=== PATIENT | female | born 1950 | race Caucasian/White ===

== ENCOUNTER 2021-05-01 19:03 | Inpatient (IN) | payer MEDICARE, MEDICAID, SELFPAY ==
[~2021-05-01] VITALS: Ht 170.2 cm; Wt 86.2 kg
--- NOTE | 2021-05-01 19:05 | NUR ---
Placed in room 07 . Placed on cardiac monitor technician, blood pressure machine and pulse oximeter. To gown for exam. Side rails up. Report given to GUANAKITO ZAVALA
[2021-05-01 19:09] VITALS: BP_SYST 156
--- NOTE | 2021-05-01 19:15 | NUR ---
AWAKE, BOUTS OF CONFUSION. THIRSTY, ASKED FOR ICED WATER. PT IS BLIND BILAYERALLY. ACCU-MAURICEK MD YANCI AWARE.
--- NOTE | 2021-05-01 19:23 | NUR ---
DEDE ARRIOLA ([facility]) [phone]
--- NOTE | 2021-05-01 20:00 | NUR ---
TOOK SIPS OF ICED WATER.
[2021-05-01 20:05] LABS: BASOPHILS % (AUTO) 0.2 % (0.0-2.0); EOSINOPHILS % (AUTO) 0.2 % (0.0-4.0); HEMATOCRIT 34.3 % (36-48); HEMOGLOBIN 10.3 g/dL (12.0-16.0); LYMPHOCYTES # (AUTO) 0.6 K/uL (1.0-5.5); LYMPHOCYTES % (AUTO) 3.6 % (20.5-51.5); MEAN CORPUSCULAR HEMOGLOBIN 27 pg (27-31); MEAN CORPUSCULAR HGB CONC 30 % (32-36); MEAN CORPUSCULAR VOLUME 89 fL (79.0-98.0); MONOCYTES # (AUTO) 1.2 K/uL (0.0-1.0); MONOCYTES % (AUTO) 6.5 % (1.7-9.3); NEUTROPHILS # (AUTO) 15.9 K/uL (1.8-7.7); NEUTROPHILS % (AUTO) 89.5 % (40.0-70.0); PLATELET COUNT (AUTO) 237 K/uL (130-430); RED BLOOD CELL COUNT(AUTO) 3.87 MIL/uL (4.2-6.2); RED CELL DISTRIBUTION WIDTH 13.4 % (9.0-15.0); WHITE BLOOD COUNT (AUTO) 17.8 K/uL (4.8-10.8)
[2021-05-01 20:25] LABS: ANION GAP 31 (5-15); CALCIUM 8.8 mg/dL (8.4-11.0); CREATININE 3.02 mg/dL (0.55-1.30); SODIUM SERUM 126 mmol/L (136-145); UREA NITROGEN, BLOOD 51 mg/dL (8-21)
[2021-05-01 20:30] LABS: CHLORIDE 84 mmol/L (98-107); GLUCOSE 842 mg/dL (70-99)
[2021-05-01 20:35] LABS: ALANINE AMINOTRANSFERASE 11 U/L (12-78); ALBUMIN 2.8 g/dL (3.4-4.8); ASPARTATE AMINOTRANSFERASE 14 U/L (10-37); TOTAL BILIRUBIN 0.7 mg/dL (0.0-1.0)
[2021-05-01 20:36] LABS: ACETAMINOPHEN < 1 ug/mL (1-30); ALCOHOL, BLOOD < 3 mg/dL (<10)
[2021-05-01 20:39] LABS: ACETONE, SERUM LARGE (NEGATIVE)
[2021-05-01 20:46] LABS: INR 0.9 (0.8-1.2); PROTHROMBIN TIME 9.9 SECS (9.5-12.5)
[2021-05-01 21:08] LABS: C-REACTIVE PROTEIN QUANT 29.3 mg/dL (0-0.5)
[2021-05-01] MEDS ORDERED: INSULIN REGULAR, HUMAN 10 UNITS/0.1 ML INJ IVP ONE (21:15)
[2021-05-01] MEDS ORDERED: PIPERACILLIN/TAZO 3.375 GM in NS 50 ML IV ONE (21:15)
[2021-05-01] MEDS ORDERED: NACL 0.9% 1,000 ML IV ONE (21:15)
[2021-05-01] MEDS ORDERED: INSULIN REGULAR, HUMAN 100 UNITS in NS 99 ML IV ONE ×2 (21:15)
[2021-05-01] MEDS ORDERED: VANCOMYCIN HCL 1,000 MG in NS 250 ML IV ONE (21:15)
[2021-05-01] MEDS ORDERED: INSULIN REGULAR, HUMAN 100 UNITS in NS 99 ML IV PRN ×2 (21:30)
[2021-05-01] MEDS ORDERED: NACL 0.9% 1,000 ML IV SCH (21:30)
[2021-05-01] MEDS ORDERED: DEXTROSE 50% JECT 50 ML DISP.SYRIN IVP PRN (21:30)
[2021-05-01 21:43] LABS: PHOSPHORUS 7.1 mg/dL (2.7-4.5)
--- NOTE | 2021-05-01 22:00 | NUR ---
ASTRID PETE MD AWARE.
--- NOTE | 2021-05-01 22:40 | NUR ---
[place] CATH INSERTED USING ASEPTIC TECHNIQUE. URINE SPEC SENT TO LAB FOR UA.
--- NOTE | 2021-05-01 22:53 | NUR ---
INSULIN DRIP STARTED AT 6 UNITS/HR.
[2021-05-01] MEDS ORDERED: PIPERACILLIN/TAZOBACTAM 3.375 GM/VIAL (ZOSYN) IV ONE (22:56)
[2021-05-01] MEDS ORDERED: VANCOMYCIN HCL 1000 MG/VIAL IV ONE (22:56)
[2021-05-01 23:16] LABS: BILIRUBIN,URINE 1+ (NEGATIVE); BLOOD, URINE 1+ (NEGATIVE); COLOR,URINE YELLOW (YELLOW); GLUCOSE,URINE 3+ (NEGATIVE); KETONES,URINE 3+ (NEGATIVE); LEUKOCYTE ESTERASE ,URINE NEGATIVE (NEGATIVE); NITRITE, URINE NEGATIVE (NEGATIVE); PH,URINE 5.5 (5.0-8.0); PROTEIN URINE 1+ (NEGATIVE); UROBILINOGEN,URINE 0.2 (0.2-1.0)
[2021-05-01 23:18] LABS: CLARITY/URINE HAZY (CLEAR)
[2021-05-01 23:24] LABS: BACTERIA,URINE FEW /HPF (None Seen); RBC,URINE 0-3 /HPF (0-3)
[2021-05-01 23:29] LABS: BARBITURATE, URINE NEGATIVE (NEG <=200); BENZODIAZEPINE, URINE NEGATIVE (NEG <=150); CANNABINOID, URINE NEGATIVE (NEG <=50); COCAINE, URINE NEGATIVE (NEG <=150); METHAMPHETAMINES SCREEN,URINE NEGATIVE (NEG <=500); OPIATE, URINE NEGATIVE (NEG <=100); PHENCYCLIDINE SCREEN,URINE NEGATIVE (NEG <=25); URINE AMPHETAMINE NEGATIVE (NEG <=500); URINE METHADONE NEGATIVE (NEG <=200); URINE OXYCODONE SCREEN NEGATIVE (NEG <=100); URINE PROPOXYPHENE SCREEN NEGATIVE (NEG <=300)
[2021-05-01 23:30] LABS: UR TRICYCLIC ANTIDEPRESSANTS NEGATIVE (NEG <=300)
[2021-05-01] MEDS ORDERED: ACETAMINOPHEN/CODEINE 300 MG-30 MG TABLET PO ONE (23:30)
[2021-05-01] MEDS ORDERED: NALOXONE HCL 0.4 MG/ML AMP (NARCAN) IVP PRN (23:30)
--- NOTE | 2021-05-01 23:45 | NUR ---
TYLENOL #3 1 TAB PO GIVEN FOR BACK PAIN.
--- NOTE | 2021-05-01 23:57 | NUR ---
ACCLeonard-ELLIE Contreras MD AWARE.
[2021-05-02] VITALS (13 sets, daily range): BP systolic 103–138
[2021-05-02] MEDS: LORazepam 2 MG/ML VIAL IVP PRN ×2 (00:13→00:16)
--- NOTE | 2021-05-02 00:15 | NUR ---
ATIVAN 1 MG IVP GIVEN FOR ANXIETY.
--- NOTE | 2021-05-02 00:20 | NUR ---
NASAL SWAB SENT TO LAB FOR MRSA AN COVID.
--- NOTE | 2021-05-02 00:31 | NUR ---
PATIENT AOX1 UNABLE TO REMEMBER MEDICATIONS. NO FAMILY AT BEDSIDE. UNABLE TO COMPLETE MEDICATION RECONCILIATION AT THIS TIME.
--- NOTE | 2021-05-02 00:32 | NUR ---
Patient is unable to participate in end of life decisions making at this time. We are unable to contact family or power of immigration attorney for healthcare and there are no code status forms on the chart. At this time the patient will be treated as full code on the basis of implied consent.
--- NOTE | 2021-05-02 01:00 | NUR ---
ACCU-CHEK 525, INSULIN DRIP REMAINS AT 6 UNITS/HR.
--- NOTE | 2021-05-02 02:00 | NUR ---
ACCU-CHEK 456, INSULIN DRIP AT 5 UNITS/HR.
--- NOTE | 2021-05-02 02:22 | NUR ---
1000 CC URINE EMPTIED OUT OF [place] CATH.
[2021-05-02] MEDS ORDERED: HYDROmorphone 1 MG/ML INJ. CARTRIDGE IVP ONE (03:15)
--- NOTE | 2021-05-02 03:25 | NUR ---
ACCU-CHEK 340, INSULIN DRIP AT 3 UNITS/HR. DILAUDID 0.5 MG IVP GIVEN FOR BACK PAIN.
--- NOTE | 2021-05-02 03:30 | NUR ---
VS 130/59, 86, 96%, 20.
[2021-05-02] MEDS ORDERED: PIPERACILLIN/TAZOBACTAM 3.375 GM/VIAL (ZOSYN) IV ONE (03:47)
--- NOTE | 2021-05-02 04:00 | NUR ---
ACCU-CHEK 317, INSULIN DRIP AT 3UNITS/HR. SOUNDLY ASLEEP.
--- NOTE | 2021-05-02 05:00 | NUR ---
ACCU-CHEK 332, INSULIN DRIP AT 3 UNITS/HR. SOUNDLY ASLEEP. NO DISTRESS NOTED. BP 124/49.
[2021-05-02] MEDS: PIPERACILLIN/TAZO 3.375/DEX-IS 50 ML IV SCH ×3 (05:55→21:19)
[2021-05-02 06:08] LABS: BASOPHILS # (AUTO) 0.1 K/uL (0.0-0.2); BASOPHILS % (AUTO) 0.3 % (0.0-2.0); HEMATOCRIT 32.6 % (36-48); HEMOGLOBIN 10.6 g/dL (12.0-16.0); LYMPHOCYTES # (AUTO) 1.6 K/uL (1.0-5.5); LYMPHOCYTES % (AUTO) 9.2 % (20.5-51.5); MEAN CORPUSCULAR HEMOGLOBIN 27 pg (27-31); MEAN CORPUSCULAR HGB CONC 33 % (32-36); MEAN CORPUSCULAR VOLUME 83 fL (79.0-98.0); MONOCYTES # (AUTO) 1.9 K/uL (0.0-1.0); MONOCYTES % (AUTO) 10.8 % (1.7-9.3); NEUTROPHILS % (AUTO) 79.7 % (40.0-70.0); PLATELET COUNT (AUTO) 238 K/uL (130-430); RED BLOOD CELL COUNT(AUTO) 3.95 MIL/uL (4.2-6.2); WHITE BLOOD COUNT (AUTO) 17.6 K/uL (4.8-10.8)
--- NOTE | 2021-05-02 06:11 | NUR ---
ACCU-CHEK 321, INSULIN DRIP AT 3 UNITS/HR. SOUNDLY ASLEEP. SNORES. MOUTH BREATHER. DESATURATES TO LOW 80'S. PLACED ON O2 AT 2L/NC. POX IMPROVED TO 96-97%. UO GOOD, 600CC MORE URINE OUT OF [place] CATH FOR A TOTAL OF 1600CC FOR NOC SHIFT. ABLE TO REPOSITION SELF WELL. REMAINS IN GUARDED CONDITION.
--- NOTE | 2021-05-02 06:58 | NUR ---
ACCU-CHEK 316, INSULIN DRIP AT 3 UNITS/HR.
[2021-05-02 07:03] LABS: ALANINE AMINOTRANSFERASE 3 U/L (12-78); ALBUMIN 2.7 g/dL (3.4-4.8); ANION GAP 17 (5-15); ASPARTATE AMINOTRANSFERASE 14 U/L (10-37); CALCIUM 8.4 mg/dL (8.4-11.0); CHLORIDE 97 mmol/L (98-107); CREATININE 2.74 mg/dL (0.55-1.30); GLUCOSE 346 mg/dL (70-99); PHOSPHORUS 3.9 mg/dL (2.7-4.5); SODIUM SERUM 136 mmol/L (136-145); TOTAL BILIRUBIN 0.5 mg/dL (0.0-1.0); UREA NITROGEN, BLOOD 50 mg/dL (8-21)
--- NOTE | 2021-05-02 07:08 | NUR ---
RESUMING CARE FROM GUANAKITO ZAVALA. PT TO TRANSFER TO ICU WHEN BED AVAILABLE.
[2021-05-02 07:43] LABS: C-REACTIVE PROTEIN QUANT 28.2 mg/dL (0-0.5)
[2021-05-02 07:54] LABS: ERYTHROCYTE SEDIMENTATION RATE 106 MM/HR (0-20)
--- NOTE | 2021-05-02 08:08 | NUR ---
ACCUCHECK 294, ATTENDING RN MADE AWARE
[2021-05-02] MEDS ORDERED: KCL 20 mEq in 100 mL (PREMIX) 100 ML IV ONE (08:45)
[2021-05-02 09:33] LABS: CHOLESTEROL 159 mg/dL (<200); HDL CHOLESTEROL 55 mg/dL (>55); LDL CHOLESTEROL 58 mg/dL (<100); TRIGLYCERIDES 187 mg/dL (30-150)
[2021-05-02] MEDS ORDERED: ASPI-1393 PO (09:42)
[2021-05-02] MEDS ORDERED: LIP40 PO (09:42)
[2021-05-02] MEDS ORDERED: ERGO50CA PO (09:42)
[2021-05-02] MEDS ORDERED: SSNOVOLOG SUBCUT (09:42)
[2021-05-02] MEDS ORDERED: HYDR25TA4 PO (09:42)
[2021-05-02] MEDS ORDERED: HYDR-4038 PO (09:42)
[2021-05-02] MEDS ORDERED: LOPE2CAP PO (09:42)
[2021-05-02] MEDS: NACL 0.9% 1,000 ML IV SCH ×2 (09:45→19:53)
--- NOTE | 2021-05-02 10:28 | NUR ---
REPORT GIVEN TO GUANAKITO SANZ FOR CONITNUITY OF CARE IN ICU. PT IS STABLE, NAD, VSS, AWAITING TRANSPORT WITH EMT TO THE UNIT.
--- NOTE | 2021-05-02 10:45 | NUR ---
PT TRANSFERRED BY ACLS, WITH MIN, EMT. ADDITIONAL, BEDSIDE REPORT GIVEN.
--- NOTE | 2021-05-02 10:53 | NUR ---
CONSULT ID CONSULTING MD: DR. CANADA PERSON NOTIFIED: DR. CANADA ORDERED BY: DR. MACIEL DIALED: [phone]
--- NOTE | 2021-05-02 11:00 | NUR ---
Received pt from ER to ICU bed 126B. Pt has eyes open but is non verbal at this time. Temp 97.7 HR 78 RR 15 and BP 117/59 on arrival. 02 at 2L NC. HOB up. Pt has NS infusing at 100cc/hr and KCL 20 meq infusing at 20cc/hr to the right hand. No skin breakdown noted to back side. SR on monitor. Pt has a willard with yellow urine in bag.
--- NOTE | 2021-05-02 11:16 | NUR ---
accu checek 399.
--- NOTE | 2021-05-02 11:20 | NUR ---
CONSULT NEPHRO. CONSULTING MD: DR. FLORES PERSON NOTIFIED: LISBET DIALED: [phone] ORDERED BY: DR. MACIEL
--- NOTE | 2021-05-02 11:26 | NUR ---
CONSULT ENDOCRINE CONSULTING MD: DR. RAO SAYED DIALED: [phone] ORDERED BY: DR. MACIEL LEFT A VOICE MESSAGE AWAITING CALL BACK.
--- NOTE | 2021-05-02 11:42 | NUR ---
Unable to scan accucheck. Pharmacist notified Henry. Torres 399.
--- NOTE | 2021-05-02 11:49 | NUR ---
Dr Dimas Sayed paged a second time for consult.
[2021-05-02] MEDS ORDERED: INSULIN LISPRO SLIDING SCALE 100 UNITS/ML VIAL (humaLOG) SUBCUT PRN (12:30)
--- NOTE | 2021-05-02 13:40 | NUR ---
Accucheck 475 and 12 units of humalog insulin subcut given. Call out to Dr. Noonan.
[2021-05-02] MEDS ORDERED: D5W 1,000 ML IV PRN (13:45)
[2021-05-02] MEDS ORDERED: DEXTROSE 50%-WATER 50 ML DISP.SYRIN IVP PRN (13:45)
[2021-05-02] MEDS ORDERED: GLUCOSE (DEXTROSE) ORAL GEL -Adults PO PRN (13:45)
--- NOTE | 2021-05-02 13:45 | NUR ---
Humalog insulin not scanning. Spoke with ozzy. Humalog sliding scale insulin given as ordered.
[2021-05-02 13:51] LABS: ANION GAP 21 (5-15); CALCIUM 8.5 mg/dL (8.4-11.0); CHLORIDE 96 mmol/L (98-107); CREATININE 2.94 mg/dL (0.55-1.30); POTASSIUM 4.7 mmol/L (3.5-5.1); SODIUM SERUM 133 mmol/L (136-145); UREA NITROGEN, BLOOD 54 mg/dL (8-21)
[2021-05-02 13:57] LABS: GLUCOSE 513 mg/dL (70-99)
[2021-05-02] MEDS ORDERED: INSULIN REGULAR, HUMAN 100 UNITS in NS 99 ML IV PRN ×2 (14:15)
[2021-05-02] MEDS ORDERED: DEXTROSE 50% JECT 50 ML DISP.SYRIN IVP PRN (15:15)
[2021-05-02] MEDS: INSULIN REGULAR, HUMAN 100 UNITS in NS 99 ML IV PRN ×10 (16:29→23:05)
[2021-05-02 18:13] LABS: ANION GAP 16 (5-15); CALCIUM 8.6 mg/dL (8.4-11.0); CHLORIDE 98 mmol/L (98-107); CREATININE 3.03 mg/dL (0.55-1.30); POTASSIUM 3.6 mmol/L (3.5-5.1); SODIUM SERUM 133 mmol/L (136-145); UREA NITROGEN, BLOOD 54 mg/dL (8-21)
[2021-05-02 18:28] LABS: GLUCOSE 436 mg/dL (70-99)
--- NOTE | 2021-05-02 19:30 | NUR ---
Report given to oncoming staff. Insulin drip at 6 units/hr. zNS at 100 cc/hr infusing. Pt more alert and took a few ice chips. Repostioned in bed with pillows.
--- NOTE | 2021-05-02 20:11 | NUR ---
PAGED FOR ORDERS DIALED: [phone] SPOKE TO: LAUREN
[2021-05-02] MEDS ORDERED: LEVOFLOXACIN IN DEXTROSE 5 % 100 ML IV SCH (21:00)
--- NOTE | 2021-05-02 21:53 | NUR ---
HIGH ALERT NOTE: Called Dr. BLAKE back at identified within the medical roster to verify physician authenticity.
[2021-05-02] MEDS ORDERED: MORPHINE 2 MG/ML INJ. SYRINGE IVP ONE (22:00)
[2021-05-02] MEDS ORDERED: LEVOFLOXACIN IN DEXTROSE 5 % 100 ML IV ONE (22:14)
[2021-05-02] MEDS ORDERED: HYDROcodone/ACETAMIN 5-325 MG TAB (NORCO/ VICODIN) PO PRN (22:15)
[2021-05-02] MEDS ORDERED: NALOXONE HCL 0.4 MG/ML AMP (NARCAN) IVP PRN (22:15)
[2021-05-03] VITALS (23 sets, daily range): BP systolic 101–149
[2021-05-03 00:15] LABS: ANION GAP 11 (5-15); CALCIUM 8.7 mg/dL (8.4-11.0); CHLORIDE 103 mmol/L (98-107); CREATININE 2.81 mg/dL (0.55-1.30); GLUCOSE 227 mg/dL (70-99); POTASSIUM 3.6 mmol/L (3.5-5.1); SODIUM SERUM 139 mmol/L (136-145); UREA NITROGEN, BLOOD 52 mg/dL (8-21)
[2021-05-03] MEDS: INSULIN REGULAR, HUMAN 100 UNITS in NS 99 ML IV PRN ×14 (00:18→06:44)
--- NOTE | 2021-05-03 05:05 | NUR ---
Nutrition Update John Scale 15 noted. Pt admitted for Hyperglycemia Diet: NPO BMI: 29.8 kg/m2 RD to follow per nutrition care standards.
[2021-05-03] MEDS: NACL 0.9% 1,000 ML IV SCH ×2 (05:40→14:02)
[2021-05-03] MEDS: PIPERACILLIN/TAZO 3.375/DEX-IS 50 ML IV SCH ×3 (05:40→21:15)
[2021-05-03 07:56] LABS: BASOPHILS % (AUTO) 0.3 % (0.0-2.0); EOSINOPHILS % (AUTO) 0.1 % (0.0-4.0); HEMATOCRIT 30.7 % (36-48); LYMPHOCYTES # (AUTO) 0.4 K/uL (1.0-5.5); LYMPHOCYTES % (AUTO) 3.2 % (20.5-51.5); MEAN CORPUSCULAR HEMOGLOBIN 27 pg (27-31); MEAN CORPUSCULAR HGB CONC 33 % (32-36); MEAN CORPUSCULAR VOLUME 81 fL (79.0-98.0); MONOCYTES # (AUTO) 0.6 K/uL (0.0-1.0); MONOCYTES % (AUTO) 5.5 % (1.7-9.3); NEUTROPHILS # (AUTO) 10.2 K/uL (1.8-7.7); NEUTROPHILS % (AUTO) 90.9 % (40.0-70.0); PLATELET COUNT (AUTO) 195 K/uL (130-430); RED BLOOD CELL COUNT(AUTO) 3.77 MIL/uL (4.2-6.2); RED CELL DISTRIBUTION WIDTH 13.1 % (9.0-15.0); WHITE BLOOD COUNT (AUTO) 11.2 K/uL (4.8-10.8)
[2021-05-03] MEDS ORDERED: LEVOFLOXACIN IN DEXTROSE 5 % 100 ML IV ONE (08:00)
[2021-05-03 08:09] LABS: ANION GAP 13 (5-15); CALCIUM 8.8 mg/dL (8.4-11.0); CHLORIDE 105 mmol/L (98-107); CREATININE 2.55 mg/dL (0.55-1.30); GLUCOSE 207 mg/dL (70-99); POTASSIUM 3.4 mmol/L (3.5-5.1); SODIUM SERUM 142 mmol/L (136-145); UREA NITROGEN, BLOOD 47 mg/dL (8-21)
[2021-05-03 08:15] LABS: ALBUMIN 2.1 g/dL (3.4-4.8); TOTAL BILIRUBIN 0.2 mg/dL (0.0-1.0)
[2021-05-03 08:26] LABS: ASPARTATE AMINOTRANSFERASE 60 U/L (10-37)
[2021-05-03 08:27] LABS: ALANINE AMINOTRANSFERASE 17 U/L (12-78)
[2021-05-03] MEDS: INSULIN NPH 100 UNITS/ML 10 ML VIAL SUBCUT SCH ×2 (08:47→21:17)
--- NOTE | 2021-05-03 10:07 | NUR ---
Dietitian Recommendations *Recommend: advance diet when medically appropriate. [facility] modify diet texture per pt's preference) Please see Nutritional Assessment for details
[2021-05-03] MEDS: INSULIN LISPRO SLIDING SCALE 100 UNITS/ML VIAL (humaLOG) SUBCUT PRN ×3 (12:13→21:23)
--- NOTE | 2021-05-03 17:27 | NUR ---
PT CONDITION REMAINS STABLE INSULIN DRIP WAS DISCONTINUED IN AM PT IS ALERT AND ORIENTED AND APPROPRIATE FOOD INTAKE GOOD NO ABNORM. NOTED IS ON AC AND HS ACCU CK WITH SS COMFORT AND SAFETY MAINTAINED SKIN WARM AND DRY
[2021-05-03] MEDS ORDERED: LEVOFLOXACIN 250 MG/D5W 50 ML IV SCH (21:00)
[2021-05-04] VITALS (16 sets, daily range): BP systolic 118–165
[2021-05-04] MEDS: PIPERACILLIN/TAZO 3.375/DEX-IS 50 ML IV SCH ×3 (06:37→21:09)
[2021-05-04] MEDS: INSULIN LISPRO SLIDING SCALE 100 UNITS/ML VIAL (humaLOG) SUBCUT PRN ×4 (07:11→21:14)
--- NOTE | 2021-05-04 07:15 | NUR ---
ASSESS PT C/O BEING INCONT OF STOOLS AND HL OUT WITH IVF INFUSING HYGIENCE CARE GIVEN AND NEW IV ACCESS PLACED IN LEFT HAND #22G [place] [facility] IVF CONTINUE PT STATED SHE FELT BETTER OVERALL APPEARANCES FAIR IS AFREBILE VSS SR ON THE MONITOR PLAN OF CARE TEACHING REINFORCED WITH EFFECT DENIES PAIN AT THIS TIME COMFORT AND SAFETY MAINTAINED
[2021-05-04] MEDS: INSULIN NPH 100 UNITS/ML 10 ML VIAL SUBCUT SCH ×2 (09:19→21:13)
[2021-05-04] MEDS: NACL 0.9% 1,000 ML IV SCH (11:45)
--- NOTE | 2021-05-04 13:55 | NUR ---
PT HAS BEEN DOWNGRADED TO TELE. TEACHING GIVEN TO PT WITH EFFECT
--- NOTE | 2021-05-04 20:00 | NUR ---
pt.received transfer from the unit;icu.pt.presents stable status.pt.presents visual challenge blind bilateral.pt.presents iv access intact location lt.hand iv fluids administration to be continued.pt.presents willard cath intact urine content present.v/s assessed values wnl.note b/p status elevated.no c/o pain,nausea.call light/telephone placed w/in access of the pt.
--- NOTE | 2021-05-04 20:30 | NUR ---
i have assessed the blood glucose;value;256mg/dl.
--- NOTE | 2021-05-04 21:00 | NUR ---
2100pmedicatio administered:insulins;nph;20-u,humalog;4 u per sliding scale.
--- NOTE | 2021-05-04 22:00 | NUR ---
pt.assessed.pt.had requested medication diarrhea. paged apprised of the pt's status;diarrhea.imodium ordered. i have administered imodium po capsel.to assess the efficacy of the medication per protocol.pt.assessed for cleanliness pt. repositioned.iv access intact iv fluids infusing.no c/o pain,nausea.call light/telephone placed w/in access of the pt.
[2021-05-04] MEDS: LOPERAMIDE HCL 2 MG CAPSULE PO PRN (22:08)
--- NOTE | 2021-05-05 | NUR ---
pt.assessed.v/s assessed values wnl.no c/o pain,nausea.pt.assessed for cleanliness.pt.repositioned.iv access intact iv fluids infusing.no request posited@this hour.call light/telephone placed w/in access of the pt.
[2021-05-05 00:21] VITALS: BP_SYST 132
--- NOTE | 2021-05-05 01:00 | NUR ---
pt.presents nausea.i have administered zofran:4mg ivp.to assess the efficacy of the medication per protocol.pt.requested juice;grape provided.
[2021-05-05] MEDS: ONDANSETRON HCL 4 MG/2 ML VIAL IVP PRN ×2 (01:15→11:55)
--- NOTE | 2021-05-05 02:00 | NUR ---
pt.assessed.pt.presents quiescent affect calm,somnolent.per flacc pain mgx pt.absent facial grimaces/body posturing.iv access intact iv fluids infusing.willard cath intact urine content present.pt.assessed for cleanliness pt.repositioned.call light/telephone placed w/in access of the pt.
--- NOTE | 2021-05-05 04:00 | NUR ---
pt.assessed.pt.presents quiescent affect;calm,somnolent.per flacc pain mgx pt.absent facial grimaces/body posturing. pt.assessed for cleanliness.pt.repositioned.o2-sat%=96%.call light/telephone placed w/in access of the pt. Addendum: 05/05/21 at 0417 by Hector Krueger RN pt.requested medication diarrhea.i have administered imodium capsule.to assess the efficacy of the medication per protocol. i have assisted the w the bedpan.pt.cleaned/repositioned.
[2021-05-05] MEDS: LOPERAMIDE HCL 2 MG CAPSULE PO PRN ×3 (04:04→21:27)
[2021-05-05] MEDS: PIPERACILLIN/TAZO 3.375/DEX-IS 50 ML IV SCH ×3 (06:05→21:15)
[2021-05-05] MEDS: INSULIN LISPRO SLIDING SCALE 100 UNITS/ML VIAL (humaLOG) SUBCUT PRN ×2 (06:11→17:44)
--- NOTE | 2021-05-05 06:28 | NUR ---
pt.assessed.pt.presents no c/o pain,nausea.pt.assessed for cleanliness.pt.repositioned/blood glucose assessed value; 258mg/dl insulin;humalo-u administered.iv access intact iv fluids infusing.call light/telephone placed w/in access of the pt.
[2021-05-05 07:55] VITALS: BP_SYST 145
[2021-05-05] MEDS: INSULIN NPH 100 UNITS/ML 10 ML VIAL SUBCUT SCH ×2 (08:28→21:14)
[2021-05-05] MEDS: NACL 0.9% 1,000 ML IV SCH (08:30)
--- NOTE | 2021-05-05 10:39 | NUR ---
pt resting in bed, n o resp distress, no pain.
[2021-05-05 10:43] LABS: BASOPHILS % (AUTO) 0.3 % (0.0-2.0); EOSINOPHILS % (AUTO) 0.4 % (0.0-4.0); HEMOGLOBIN 9.6 g/dL (12.0-16.0); LYMPHOCYTES # (AUTO) 1.1 K/uL (1.0-5.5); LYMPHOCYTES % (AUTO) 14.5 % (20.5-51.5); MEAN CORPUSCULAR HEMOGLOBIN 27 pg (27-31); MEAN CORPUSCULAR HGB CONC 33 % (32-36); MEAN CORPUSCULAR VOLUME 81 fL (79.0-98.0); MONOCYTES # (AUTO) 0.6 K/uL (0.0-1.0); MONOCYTES % (AUTO) 8.5 % (1.7-9.3); NEUTROPHILS # (AUTO) 5.6 K/uL (1.8-7.7); NEUTROPHILS % (AUTO) 76.3 % (40.0-70.0); PLATELET COUNT (AUTO) 157 K/uL (130-430); RED CELL DISTRIBUTION WIDTH 12.8 % (9.0-15.0); WHITE BLOOD COUNT (AUTO) 7.3 K/uL (4.8-10.8)
[2021-05-05 10:59] LABS: ANION GAP 8 (5-15); CALCIUM 8.2 mg/dL (8.4-11.0); CHLORIDE 104 mmol/L (98-107); CREATININE 1.68 mg/dL (0.55-1.30); GLUCOSE 130 mg/dL (70-99); SODIUM SERUM 141 mmol/L (136-145); UREA NITROGEN, BLOOD 21 mg/dL (8-21)
[2021-05-05 11:06] LABS: ALANINE AMINOTRANSFERASE 13 U/L (12-78); ALBUMIN 1.8 g/dL (3.4-4.8); ASPARTATE AMINOTRANSFERASE 27 U/L (10-37); TOTAL BILIRUBIN 0.3 mg/dL (0.0-1.0)
[2021-05-05 11:18] LABS: POTASSIUM 2.5 mmol/L (3.5-5.1)
--- NOTE | 2021-05-05 11:24 | NUR ---
NEPHRO, DR FLORES WAS CALLED, RE: K OF 2.5.
--- NOTE | 2021-05-05 11:25 | NUR ---
HIGH ALERT NOTE: Called Dr. FLORES back at [phone] identified within the medical roster to verify physician authenticity.
[2021-05-05] MEDS ORDERED: POTASSIUM CHLORIDE 40 MEQ in NS 250 ML IV ONE (11:30)
[2021-05-05 12:52] VITALS: BP_SYST 137
[2021-05-05 16:17] VITALS: BP_SYST 131
[2021-05-05 19:00] VITALS: BP_SYST 142
--- NOTE | 2021-05-05 19:00 | NUR ---
PATIENT RECEIVED IN BED ALERT AND ORIENTED X3. PATIENT EDUCATED TO MEDICATION REGIMEN, FALL AND SAFETY INTERVENTION, MEDICAL MANAGEMENT AND RN PLAN OF CARE. VSS. NO ACUTE DISTRESS NOTED.
[2021-05-06 00:28] VITALS: BP_SYST 152
[2021-05-06] MEDS: LOPERAMIDE HCL 2 MG CAPSULE PO PRN ×4 (02:37→22:15)
[2021-05-06 04:00] VITALS: BP_SYST 138
[2021-05-06] MEDS: PIPERACILLIN/TAZO 3.375/DEX-IS 50 ML IV SCH ×3 (05:38→21:48)
[2021-05-06] MEDS: NACL 0.9% 1,000 ML IV SCH ×2 (05:40→23:27)
[2021-05-06 08:00] VITALS: BP_SYST 146
--- NOTE | 2021-05-06 08:00 | NUR ---
Patient resting quietly in bed with no distress noted at this time.
--- NOTE | 2021-05-06 08:15 | NUR ---
Patient stable with Dr. Dimas Sayed at bedside.
--- NOTE | 2021-05-06 09:05 | NUR ---
Checked blood sugar: 264 mg/dl - scheduled insulin given per order. Patient self repositioned; resting comfortably in bed at this time with no complaint of pain.
[2021-05-06] MEDS: INSULIN NPH 100 UNITS/ML 10 ML VIAL SUBCUT SCH ×2 (09:06→21:54)
--- NOTE | 2021-05-06 09:20 | NUR ---
Patient given PRN medication for diarrhea.
[2021-05-06] MEDS: INSULIN LISPRO SLIDING SCALE 100 UNITS/ML VIAL (humaLOG) SUBCUT PRN ×2 (11:28→18:13)
--- NOTE | 2021-05-06 11:28 | NUR ---
Checked blood sugar: 254 mg/dl - covered per sliding scale. Patient stable at this time.
[2021-05-06 12:09] LABS: ANION GAP 5 (5-15); CHLORIDE 99 mmol/L (98-107); CREATININE 1.78 mg/dL (0.55-1.30); GLUCOSE 259 mg/dL (70-99); POTASSIUM 3.2 mmol/L (3.5-5.1); SODIUM SERUM 137 mmol/L (136-145); UREA NITROGEN, BLOOD 17 mg/dL (8-21)
[2021-05-06 12:12] VITALS: BP_SYST 124
[2021-05-06] MEDS: ONDANSETRON HCL 4 MG/2 ML VIAL IVP PRN (14:15)
--- NOTE | 2021-05-06 14:15 | NUR ---
Scheduled IV abx given per order. Patient medicated for nausea and diarrhea as well. Emptied 950 mls of clear, yellow urine from Nieves drainage bag. Patient stable at this time.
--- NOTE | 2021-05-06 15:10 | NUR ---
Nutrition F/U RD reviewed pt's current EMR record including diet Hx, physician notes, nursing notes, pertinent labs/meds/procedures, care trends, and care activity. Admission Dx: Hyperglycemia PMH: DKA, ALOC, Renal failure per MD notes. SARS-CoV-2 Ag Rapid 05/02 Negative Current Diet Order/Nutrition Support: CCHO x3 days Subjective Info: RD rounded to pt's bedside. Pt reported that she is having a bit of nausea/diarrhea and continues to have poor appetite. Pt stated she does not care for hospital foods. RD offered Glucerna and banana flakes, but pt declined. RD offered snacks (peanut butter and jelly sandwich, puddings, yogurts) -- pt appreciative and would like to start snacks in-between meals. die storage clerk notified. Per EMR review, PO intake average of 38% x3 meal records; last BM x5 05/08; John scale: 17, no PIs noted; bilat generalized 1+ non-pitting edema noted. Pt is not yet meeting nutritional needs. Pertinent Medications: insulin drip, piperacillin/tazobactam, zofran Pertinent Labs: Na 137 WNL, K 3.2 L, BG 259 H, BUN 17 WNL, CRE 1.78 H, POC BG 254 H Height (Feet) 5 feet Height (Inches) 7.00 inches Weight (Pounds) 190 pounds -- stable since 05/03 Weight (Calculated Kilograms) 86.402891 kilograms Patient Weight 86.183 kg Body Mass Index 29.75 kg/m2 %IBW 141 [place]/Adjusted Body Weight 135#/ 61kg; Adj IBW: 149#/ 68kg Weight Status Overweight Gastrointestinal Symptoms None Usual Diet At Home Diabetic diet per EMR Estimated Energy Expenditure (kcals/day) 8494-5220 (25-30 kcal/kg Adj IBW for GERIAT maintenance) Estimated Protein Required (g/day) 54-68 (08-1gm/kg Adj IBW for Renal failure, pre-dialysis) Estimated Fluid Required (l/day) per MD (Renal failure) Problem/Etiology/Signs/Symptoms Predicted suboptimal protein-calorie intake r/t current diet order AEB NPO status since admission. *improved, now on PO diet Altered nutrition related labs r/t endocrine and kidney dysfunction AEB elevated BG, BUN, SCre labs. *improving Expected Outcomes/Goals Monitor diet advancement, appetite and PO intake w/ goal of pt meeting more than 75% of estimated nutritional needs, labs trending WNL, normal GI function, skin integrity/wt maintenance. Dietitian Recommendations * CCHO diet * Pt declined Glucerna ONS * Snacks TID in-between meals * Encourage increase PO intakes Follow Up High Risk: F/U in 2-3 days
--- NOTE | 2021-05-06 15:15 | NUR ---
Dietitian Recommendations * CCHO diet * Pt declined Glucerna ONS * Snacks TID in-between meals * Encourage increase PO intakes LP, RD Please refer to Nutrition F/U for details.
[2021-05-06 15:38] VITALS: BP_SYST 121
--- NOTE | 2021-05-06 15:59 | NUR ---
Discharge Planning: DCP faxed referral to [facility] (P [phone]) and [facility] (P [phone]) DCP to follow up
--- NOTE | 2021-05-06 16:05 | NUR ---
Patient stable; resting comfortably in bed with no distress noted.
--- NOTE | 2021-05-06 16:36 | NUR ---
HIGH ALERT NOTE: Called Dr. Barboza back at [phone] identified within the medical roster to verify physician authenticity.
[2021-05-06] MEDS ORDERED: POTASSIUM CHLORIDE 20 MEQ TAB.PRT.SR PO ONE (16:45)
--- NOTE | 2021-05-06 18:05 | NUR ---
Checked blood sugar: 204 mg/dl - will cover per sliding scale. Patient stable at this time. Addendum: 05/06/21 at 1815 by Cammie Mane RN Covered per sliding scale.
--- NOTE | 2021-05-06 18:45 | NUR ---
Patient stable throughout shift. Emptied 800mls of clear, yellow urine from Nieves drainage bag.
[2021-05-06 19:00] VITALS: BP_SYST 140
[2021-05-07] VITALS: BP_SYST 136
[2021-05-07 04:00] VITALS: BP_SYST 130
[2021-05-07] MEDS: PIPERACILLIN/TAZO 3.375/DEX-IS 50 ML IV SCH (05:35)
[2021-05-07 08:00] VITALS: BP_SYST 150
[2021-05-07] MEDS: LOPERAMIDE HCL 2 MG CAPSULE PO PRN ×3 (08:36→20:51)
[2021-05-07] MEDS: INSULIN NPH 100 UNITS/ML 10 ML VIAL SUBCUT SCH ×2 (08:47→21:05)
--- NOTE | 2021-05-07 10:21 | NUR ---
DC planning: Received new order for for PT-faxed new orders to [facility] , fax#[phone] Leon asking to use [facility]-ph#[phone], fax#[phone]--s/w Rem at [employer] and faxing her HH packet. She will review and call me back. No isolation noted- MARCELINA RN
--- NOTE | 2021-05-07 11:48 | NUR ---
DC planning: Rec'd call from Rem at [facility]--She can't take pt on service as their company is not contracted with [facility]--I'm calling [facility] at [phone] to s/w a keycase assembler as I've had no call from them yet RN
[2021-05-07] MEDS: INSULIN LISPRO SLIDING SCALE 100 UNITS/ML VIAL (humaLOG) SUBCUT PRN ×2 (11:56→21:10)
[2021-05-07 12:00] VITALS: BP_SYST 138
--- NOTE | 2021-05-07 12:11 | NUR ---
DC planning: S/W Ayleen at [facility] [phone] & informed her pt needs hh/PT--Ayleen will have to call me back with a contracted vendor for [facility] as she says [facility] is who we would take the HH through. MARCELINA RN
[2021-05-07] MEDS: LEVOFLOXACIN 250 MG/D5W 50 ML IV SCH (12:51)
--- NOTE | 2021-05-07 14:06 | NUR ---
DC planning: I rec'd call from Ayleen [phone] at [facility] who said to use [facility] [phone]--I s/w August at [facility] and she asked me to fax her face sheet and doesn't think they're contracted any more with [facility]-August will call me back. MARCELINA RN
--- NOTE | 2021-05-07 14:30 | NUR ---
DC planning: Per August at [facility], insurance is contracted with them and they can accept pt and will get authorization on Sunday, then set up appt to see pt once they get the auth. August's ph#[phone], fax#[phone]--Home Health packet faxed to August. Anticipate dispo code 06. DH RN
--- NOTE | 2021-05-07 17:00 | NUR ---
pt was giving immodium twice on this shift for diarrhea results pending
[2021-05-07 18:00] VITALS: BP_SYST 128
[2021-05-07] MEDS: NACL 0.9% 1,000 ML IV SCH (18:16)
[2021-05-07 19:00] VITALS: BP_SYST 130
[2021-05-07] MEDS: ONDANSETRON HCL 4 MG/2 ML VIAL IVP PRN (20:55)
[2021-05-08 00:52] VITALS: BP_SYST 148
[2021-05-08 07:45] LABS: ANION GAP 7 (5-15); CALCIUM 7.9 mg/dL (8.4-11.0); CHLORIDE 104 mmol/L (98-107); CREATININE 1.54 mg/dL (0.55-1.30); GLUCOSE 100 mg/dL (70-99); PHOSPHORUS 2.3 mg/dL (2.7-4.5); SODIUM SERUM 143 mmol/L (136-145); UREA NITROGEN, BLOOD 14 mg/dL (8-21)
[2021-05-08 08:00] VITALS: BP_SYST 152
--- NOTE | 2021-05-08 08:00 | NUR ---
PATIENT IN BED, NO S/S OF DISTRESS, PATIENT BLIND, ADDRESSING ALL NEEDS WITH ADLs, TOLERATING CARE, SAFETY MEASURES IN PLACE WILL CONTINUE TO MONITOR.
[2021-05-08 08:32] LABS: BASOPHILS % (AUTO) 0.2 % (0.0-2.0); EOSINOPHILS # (AUTO) 0.2 K/uL (0.0-0.4); EOSINOPHILS % (AUTO) 2.7 % (0.0-4.0); HEMATOCRIT 30.8 % (36-48); HEMOGLOBIN 10.3 g/dL (12.0-16.0); LYMPHOCYTES # (AUTO) 1.9 K/uL (1.0-5.5); LYMPHOCYTES % (AUTO) 28.3 % (20.5-51.5); MEAN CORPUSCULAR HEMOGLOBIN 27 pg (27-31); MEAN CORPUSCULAR HGB CONC 33 % (32-36); MEAN CORPUSCULAR VOLUME 81 fL (79.0-98.0); MONOCYTES # (AUTO) 0.9 K/uL (0.0-1.0); MONOCYTES % (AUTO) 13.6 % (1.7-9.3); NEUTROPHILS # (AUTO) 3.6 K/uL (1.8-7.7); NEUTROPHILS % (AUTO) 55.2 % (40.0-70.0); PLATELET COUNT (AUTO) 180 K/uL (130-430); RED BLOOD CELL COUNT(AUTO) 3.82 MIL/uL (4.2-6.2); RED CELL DISTRIBUTION WIDTH 12.7 % (9.0-15.0)
[2021-05-08 08:40] LABS: POTASSIUM 2.6 mmol/L (3.5-5.1)
[2021-05-08] MEDS: LOPERAMIDE HCL 2 MG CAPSULE PO PRN ×2 (09:08→20:50)
[2021-05-08] MEDS: INSULIN NPH 100 UNITS/ML 10 ML VIAL SUBCUT SCH ×2 (09:08→20:48)
[2021-05-08 09:38] LABS: WHITE BLOOD COUNT (AUTO) 6.5 K/uL (4.8-10.8)
[2021-05-08 09:45] LABS: C-REACTIVE PROTEIN QUANT 3.9 mg/dL (0-0.5)
[2021-05-08 10:07] LABS: ERYTHROCYTE SEDIMENTATION RATE 108 MM/HR (0-20)
[2021-05-08] MEDS ORDERED: POTASSIUM CHLORIDE 40 MEQ in NS 250 ML IV ONE (11:00)
[2021-05-08] MEDS ORDERED: MAGNESIUM SULFATE 50 ML IV ONE (11:00)
[2021-05-08 11:25] VITALS: BP_SYST 149
[2021-05-08] MEDS: LEVOFLOXACIN 250 MG/D5W 50 ML IV SCH (12:11)
[2021-05-08] MEDS: INSULIN LISPRO SLIDING SCALE 100 UNITS/ML VIAL (humaLOG) SUBCUT PRN ×3 (12:14→20:49)
[2021-05-08] MEDS ORDERED: K PHOS 15 MM in NS 250 ML IV ONE (15:00)
[2021-05-08] MEDS: NACL 0.9% 1,000 ML IV SCH (15:27)
[2021-05-08 15:50] VITALS: BP_SYST 133
[2021-05-08] MEDS: ONDANSETRON HCL 4 MG/2 ML VIAL IVP PRN (17:07)
--- NOTE | 2021-05-08 19:30 | NUR ---
PATIENT IN BED, NO S/S OF DISTRESS, TOLERATING CARE, SAFETY MEASURES ENDORSED CONTINUATION OF CARE
[2021-05-08 20:10] VITALS: BP_SYST 126
--- NOTE | 2021-05-08 21:34 | NUR ---
Paged Dr. Neely for orders sleeping pills
[2021-05-08] MEDS ORDERED: TEMAZEPAM 15 MG CAPSULE PO ONE (22:00)
[2021-05-09 01:09] VITALS: BP_SYST 119
[2021-05-09] MEDS: NACL 0.9% 1,000 ML IV SCH ×2 (01:19→23:21)
[2021-05-09] MEDS: ONDANSETRON HCL 4 MG/2 ML VIAL IVP PRN ×3 (04:01→23:20)
[2021-05-09] MEDS: LOPERAMIDE HCL 2 MG CAPSULE PO PRN ×3 (05:37→23:20)
[2021-05-09] MEDS: INSULIN LISPRO SLIDING SCALE 100 UNITS/ML VIAL (humaLOG) SUBCUT PRN ×4 (06:31→20:19)
[2021-05-09 07:17] LABS: BASOPHILS % (AUTO) 0.4 % (0.0-2.0); EOSINOPHILS # (AUTO) 0.1 K/uL (0.0-0.4); EOSINOPHILS % (AUTO) 2.1 % (0.0-4.0); HEMATOCRIT 29.6 % (36-48); HEMOGLOBIN 9.9 g/dL (12.0-16.0); LYMPHOCYTES # (AUTO) 1.7 K/uL (1.0-5.5); LYMPHOCYTES % (AUTO) 25.1 % (20.5-51.5); MEAN CORPUSCULAR HEMOGLOBIN 27 pg (27-31); MEAN CORPUSCULAR HGB CONC 33 % (32-36); MEAN CORPUSCULAR VOLUME 81 fL (79.0-98.0); MONOCYTES # (AUTO) 0.9 K/uL (0.0-1.0); MONOCYTES % (AUTO) 13.8 % (1.7-9.3); NEUTROPHILS # (AUTO) 3.9 K/uL (1.8-7.7); NEUTROPHILS % (AUTO) 58.6 % (40.0-70.0); PLATELET COUNT (AUTO) 197 K/uL (130-430); RED BLOOD CELL COUNT(AUTO) 3.67 MIL/uL (4.2-6.2); RED CELL DISTRIBUTION WIDTH 12.6 % (9.0-15.0); WHITE BLOOD COUNT (AUTO) 6.6 K/uL (4.8-10.8)
[2021-05-09 07:36] LABS: ALANINE AMINOTRANSFERASE 9 U/L (12-78); ALBUMIN 1.7 g/dL (3.4-4.8); ANION GAP 4 (5-15); ASPARTATE AMINOTRANSFERASE 15 U/L (10-37); C-REACTIVE PROTEIN QUANT 2.8 mg/dL (0-0.5); CHLORIDE 103 mmol/L (98-107); CREATININE 1.62 mg/dL (0.55-1.30); GLUCOSE 217 mg/dL (70-99); PHOSPHORUS 2.9 mg/dL (2.7-4.5); POTASSIUM 3.1 mmol/L (3.5-5.1); SODIUM SERUM 138 mmol/L (136-145); TOTAL BILIRUBIN 0.1 mg/dL (0.0-1.0); UREA NITROGEN, BLOOD 13 mg/dL (8-21)
[2021-05-09 08:00] VITALS: BP_SYST 128
[2021-05-09] MEDS: INSULIN NPH 100 UNITS/ML 10 ML VIAL SUBCUT SCH ×2 (09:47→20:17)
--- NOTE | 2021-05-09 10:00 | NUR ---
PATIENT TRIED TO AMBULATE WITH REHAB, WAS TOLD BY REHAB THAT ONCE PATIENT STOOD SHE BECAME DIZZY AND BEGAN SHAKING 2X SO THEY WERE UNABLE TO AMBULATE AND NOW PATIENT IS BACK IN BED.
[2021-05-09 10:36] LABS: ERYTHROCYTE SEDIMENTATION RATE 100 MM/HR (0-20)
[2021-05-09] MEDS ORDERED: POTASSIUM CHLORIDE 40 MEQ in NS 250 ML IV ONE (11:00)
[2021-05-09 11:29] VITALS: BP_SYST 138
--- NOTE | 2021-05-09 12:04 | NUR ---
Discharge Planning: DCP faxed updated DC order to Rosalie at [facility] P [phone], pt is accepted.
[2021-05-09] MEDS: LEVOFLOXACIN 250 MG/D5W 50 ML IV SCH (12:18)
[2021-05-09 15:20] VITALS: BP_SYST 131
--- NOTE | 2021-05-09 16:00 | NUR ---
SMALL AMOUNT OF REDNESSED NOTED SACRALLY, EDUCATED PATIENT TO TURN SIDE TO SIDE Q2H TO AVOID SACRAL PRESSURE ULCERS, PATIENT STATED SHE UNDERSTOOD EDUCATION AND WOULD TURN, ALSO PROVIDED BARRIER CREAM AND APPLIED.
[2021-05-09] MEDS ORDERED: LEVO500T89 PO (16:37)
[2021-05-09] MEDS ORDERED: NPH,100I SQ (16:37)
[2021-05-09 20:00] VITALS: BP_SYST 151
--- NOTE | 2021-05-09 22:00 | NUR ---
ROUNDING NOTES Patient resting in bed - no s/s pain or distress noted. Respirations even and unlabored - head of bed elevated. IV sites patent - no s/s redness, infection, or infiltration. Bed locked and in lowest position. Call light within reach - bed alarm on. Patient cleaned at this time applied Zbarrier cream
--- NOTE | 2021-05-10 | NUR ---
ROUNDING NOTES Patient resting in bed - no s/s pain or distress noted. Respirations even and unlabored - head of bed elevated. IV sites patent - no s/s redness, infection, or infiltration. Bed locked and in lowest position. Call light within reach - bed alarm on.] Patient linens changed at this time
[2021-05-10 00:21] VITALS: BP_SYST 130
--- NOTE | 2021-05-10 02:00 | NUR ---
ROUNDING NOTES Patient resting in bed - no s/s pain or distress noted. Respirations even and unlabored - head of bed elevated. IV sites patent - no s/s redness, infection, or infiltration. Bed locked and in lowest position. Call light within reach - bed alarm on.
--- NOTE | 2021-05-10 04:00 | NUR ---
ROUNDING NOTES Patient resting in bed - no s/s pain or distress noted. Respirations even and unlabored - head of bed elevated. IV sites patent - no s/s redness, infection, or infiltration. Bed locked and in lowest position. Call light within reach - bed alarm on. Patient cleaned at this time.
[2021-05-10] MEDS: LOPERAMIDE HCL 2 MG CAPSULE PO PRN ×3 (06:07→16:13)
--- NOTE | 2021-05-10 07:33 | NUR ---
PHYSICAL THERAPY CO-SIGN The Physical Therapy Progress Notes documented by Shotblast Equipment Operator have been reviewed. Reviewed/Co-Signed by: Agus Woodruff Documentation Done by: LARISSA TORRES PTA Addendum: 05/10/21 at 7760 by Agus Woodruff PT Amended: Links added.
--- NOTE | 2021-05-10 08:00 | NUR ---
PATIENT IN BED, NO S/S OF DISTRESS, PATIENT BLIND, ADDRESSING ALL NEEDS WITH ADLs, TOLERATING CARE, SAFETY MEASURES IN PLACE WILL CONTINUE TO MONITOR. SPOKE WITH SON DEDE STATED THAT HIS SON IS NOT ABLE TO PICK THE PATIENT UNTIL AFTER 1700. WILL NOTIFY DR MACIEL
[2021-05-10] MEDS: INSULIN NPH 100 UNITS/ML 10 ML VIAL SUBCUT SCH (10:38)
[2021-05-10 11:02] LABS: ANION GAP 8 (5-15); CALCIUM 7.6 mg/dL (8.4-11.0); CHLORIDE 101 mmol/L (98-107); CREATININE 1.66 mg/dL (0.55-1.30); GLUCOSE 309 mg/dL (70-99); POTASSIUM 3.4 mmol/L (3.5-5.1); SODIUM SERUM 140 mmol/L (136-145); UREA NITROGEN, BLOOD 11 mg/dL (8-21)
[2021-05-10 11:31] VITALS: BP_SYST 140
[2021-05-10] MEDS: LEVOFLOXACIN 250 MG/D5W 50 ML IV SCH (13:09)
[2021-05-10] MEDS: INSULIN LISPRO SLIDING SCALE 100 UNITS/ML VIAL (humaLOG) SUBCUT PRN (13:11)
--- NOTE | 2021-05-10 15:00 | NUR ---
SPOKE TO DR ANGUIANO AT BEDSIDE, NOTIFIED OF BLOOD GLUCOSE TRENDS AND HE GAVE HIS SUGGESTIONS FOR PATIENT TO CONTINUE ON HER CURRENT HOME INSULIN REGIMEN, WILL REINFORCE SILVIO'S TEACHING AT DISCHARGE, IN ADDITION HE SUGGESTS HAVING THE PATIENT TAKE POTASSIUM SUPPLEMENTS AND FLAGYL TO DR MACIEL SINCE PATIENT IS HAVING BOWEL MOVEMENTS AT LEAST EVERY HOUR AND HER POTASSIUM HAS BEEN UNCONTROLLED.
[2021-05-10] MEDS ORDERED: POTASSIUM CHLORIDE 20 MEQ TAB.PRT.SR PO ONE (15:15)
[2021-05-10 15:27] VITALS: BP_SYST 143
--- NOTE | 2021-05-10 16:40 | NUR ---
SPOKE WITH DR MACIEL ABOUT DR ANGUIANO'S SUGGESTION TO HAVE PATIENT TAKE POTASSIUM AND FLAGYL UPON DISCHARGE FOR BOWEL MOVEMENTS AT LEAST EVERY HOUR, DR MACIEL STATED HE WILL CALL IN THE ORDER DIRECTLY TO THE PHARMACY AND THAT THE PATIENT STILL NEEDS TO BE DISCHARGED HOME.
[2021-05-10 18:32] VITALS: BP_SYST 143
--- NOTE | 2021-05-10 19:20 | NUR ---
PATIENT DISCHARGED, EDUCATED PATIENT AND GRANDSON, GOT VERBAL CONSENT WITH NURSE MEDELLIN BECAUSE PATIENT IS BLIND BUT A/OX4, CHANGED INTO PERSONAL CLOTHING, IVs REMOVED, EDUCATED ON WHICH PHARMACY TO GET PRESCRIPTIONS AT, ALL QUESTIONS ANSWERED, WRIST BAND REMOVED, TAKEN TO CAR IN WHEELCHAIR, DRIVEN BY GRANDSON, TOLERATED WELL.
--- NOTE | 2021-05-11 07:39 | NUR ---
PHYSICAL THERAPY CO-SIGN The Physical Therapy Progress Notes documented by Cell Lead have been reviewed. Reviewed/Co-Signed by: Agus Woodruff Documentation Done by: LARISSA TORRES PTA Addendum: 05/11/21 at 0739 by Agus Woodruff PT Amended: Links added.
== END 2021-05-10 19:20 | disposition home health service (06) | DRG 871 ==
LOC: SED 19:03 → SIC 21:21 → STU 05-04 19:58 → SMU 05-07 16:21
PROVIDERS: ADMIT Internal Medicine Hospice and Palliative Medicine; ATTEND Internal Medicine Hospice and Palliative Medicine
DX: A41.51 Sepsis due to Escherichia coli [E. coli] (principal); E11.10 Type 2 diabetes mellitus with ketoacidosis without coma; G93.41 Metabolic encephalopathy; N17.0 Acute kidney failure with tubular necrosis; N10 Acute pyelonephritis; E66.9 Obesity, unspecified; E83.52 Hypercalcemia; E83.42 Hypomagnesemia; D64.9 Anemia, unspecified; E83.39 Other disorders of phosphorus metabolism; J45.909 Unspecified asthma, uncomplicated; I12.9 Hypertensive chronic kidney disease with stage 1 through stage 4 chronic kidney disease, or unspecified chronic kidney disease; E11.22 Type 2 diabetes mellitus with diabetic chronic kidney disease; N18.9 Chronic kidney disease, unspecified; E87.6 Hypokalemia; Z20.822 Contact with and (suspected) exposure to COVID-19; Z68.29 Body mass index [BMI] 29.0-29.9, adult; Z79.4 Long term (current) use of insulin
CPT/HCPCS: 36415; 36600; 70450-TC; 71045; 76376; 76770; 80048; 80053; 80061; 80307; 81000; 82009; 82140; 82550; 82803-TC; 82962; 83036; 83605; 83735; 83880; 84100; 84484; 85025; 85610-TC; 85651-TC; 85730-TC; 86140; 87040-TC; 87081; 87086; 87230-TC; 93005; 96361; 96374; 97110-GP; 97112-GP; 97116-GP; 97530-GP; 99285; G0378; G0480; G0481; G0482; J1170; J1815; J1956; J2060; J2270; J2405; J2543; J3370; J3475; J3480; J7050

== ENCOUNTER 2021-05-28 16:45 | Emergency (ER) | payer MEDICARE, MEDICAID, SELFPAY ==
[~2021-05-28] VITALS: Ht 170.2 cm; Wt 77.1 kg
[~2021-05-28 16:45] MED LIST: ASPI-1393 PO; ERGO50CA PO; HYDR-4038 PO; LEVO500T90 PO; LIP40 PO; NPH,100I SQ; SSNOVOLOG SUBCUT
--- NOTE | 2021-05-28 17:50 | NUR ---
ER in triage examining patient.
[2021-05-28 18:15] VITALS: BP_SYST 144
--- NOTE | 2021-05-28 18:15 | NUR ---
Pt. bib grandson with c/o BLE pain and swelling, rates pain 10/10, refused to allow me to touch legs unable to assess edema look mildly swollen, also states has abd. pain 10/10 with diarhhea
[2021-05-28 19:18] LABS: BASOPHILS % (AUTO) 0.5 % (0.0-2.0); EOSINOPHILS # (AUTO) 0.1 K/uL (0.0-0.4); HEMATOCRIT 26.9 % (36-48); HEMOGLOBIN 8.9 g/dL (12.0-16.0); LYMPHOCYTES # (AUTO) 1.5 K/uL (1.0-5.5); LYMPHOCYTES % (AUTO) 18.2 % (20.5-51.5); MEAN CORPUSCULAR HEMOGLOBIN 26 pg (27-31); MEAN CORPUSCULAR HGB CONC 33 % (32-36); MEAN CORPUSCULAR VOLUME 79 fL (79.0-98.0); MONOCYTES # (AUTO) 0.6 K/uL (0.0-1.0); MONOCYTES % (AUTO) 7.1 % (1.7-9.3); NEUTROPHILS % (AUTO) 73.2 % (40.0-70.0); PLATELET COUNT (AUTO) 316 K/uL (130-430); WHITE BLOOD COUNT (AUTO) 8.2 K/uL (4.8-10.8)
[2021-05-28 19:23] LABS: ANION GAP 5 (5-15); CALCIUM 8.3 mg/dL (8.4-11.0); CHLORIDE 100 mmol/L (98-107); CREATININE 1.31 mg/dL (0.55-1.30); GLUCOSE 262 mg/dL (70-99); POTASSIUM 4.1 mmol/L (3.5-5.1); SODIUM SERUM 136 mmol/L (136-145); UREA NITROGEN, BLOOD 17 mg/dL (8-21)
[2021-05-28 19:34] LABS: ALANINE AMINOTRANSFERASE 10 U/L (12-78); ALBUMIN 2.4 g/dL (3.4-4.8); ASPARTATE AMINOTRANSFERASE 18 U/L (10-37); TOTAL BILIRUBIN 0.3 mg/dL (0.0-1.0)
--- NOTE | 2021-05-28 21:08 | NUR ---
Patient given written and verbal discharge instructions and verbalizes understanding. ER MD discussed with patient the results and treatment provided. Patient in stable condition. ID arm band removed. Patient educated on pain management and to follow up with PMD. Pain Scale 0. Opportunity for questions provided and answered. Medication side effect fact sheet provided.
== END 2021-05-28 21:07 | disposition home or self-care (01) ==
LOC: SED 16:45
DX: M79.604 Pain in right leg (principal); M79.605 Pain in left leg; Z79.899 Other long term (current) drug therapy
CPT/HCPCS: 36415; 71045; 80053; 83880; 84484; 85025; 93005; 99285

== ENCOUNTER 2023-11-19 21:46 | Inpatient (IN) | payer MEDICARE, MEDICAID ==
[~2023-11-19] VITALS: Ht 170.2 cm; Wt 78.0 kg
[~2023-11-19 21:46] MED LIST changes: -HYDR-4038 PO; +HYDR25TA86 PO; +LEVO-62 PO; -LEVO500T90 PO
[2023-11-19 21:50] VITALS: BP_SYST 188; PULSE 79; RESP 16; TEMP 97.6; O2SAT 97
[2023-11-19 22:38] LABS: BASOPHILS # (AUTO) 0.1 K/uL (0.0-0.2); BASOPHILS % (AUTO) 0.7 % (0.0-2.0); EOSINOPHILS # (AUTO) 0.1 K/uL (0.0-0.4); EOSINOPHILS % (AUTO) 1.1 % (0.0-4.0); HEMATOCRIT 30.5 % (36-48); HEMOGLOBIN 10.3 g/dL (12.0-16.0); LYMPHOCYTES # (AUTO) 2.6 K/uL (1.0-5.5); LYMPHOCYTES % (AUTO) 33.1 % (20.5-51.5); MEAN CORPUSCULAR HEMOGLOBIN 28 pg (27-31); MEAN CORPUSCULAR HGB CONC 34 % (32-36); MEAN CORPUSCULAR VOLUME 83 fL (79.0-98.0); MONOCYTES # (AUTO) 0.7 K/uL (0.0-1.0); MONOCYTES % (AUTO) 8.6 % (1.7-9.3); NEUTROPHILS # (AUTO) 4.4 K/uL (1.8-7.7); NEUTROPHILS % (AUTO) 56.5 % (40.0-70.0); PLATELET COUNT (AUTO) 229 K/uL (130-430); RED BLOOD CELL COUNT(AUTO) 3.68 MIL/uL (4.2-6.2); RED CELL DISTRIBUTION WIDTH 13.8 % (9.0-15.0); WHITE BLOOD COUNT (AUTO) 7.9 K/uL (4.8-10.8)
[2023-11-19 22:42] LABS: BILIRUBIN,URINE NEGATIVE (NEGATIVE); BLOOD, URINE 1+ (NEGATIVE); CLARITY/URINE CLEAR (CLEAR); COLOR,URINE YELLOW (YELLOW); GLUCOSE,URINE 2+ (NEGATIVE); KETONES,URINE NEGATIVE (NEGATIVE); LEUKOCYTE ESTERASE ,URINE NEGATIVE (NEGATIVE); NITRITE, URINE NEGATIVE (NEGATIVE); PROTEIN URINE 2+ (NEGATIVE); UROBILINOGEN,URINE 0.2 (0.2-1.0)
[2023-11-19] MEDS: hydrALAZINE HCL 20 MG/ML VIAL IVP ONE (22:56)
[2023-11-19 23:00] LABS: ANION GAP 6 (5-15); CALCIUM 8.6 mg/dL (8.4-11.0); CARBON DIOXIDE 32 mmol/L (23-29); CHLORIDE 104 mmol/L (98-107); CREATININE 1.94 mg/dL (0.55-1.30); GLUCOSE 226 mg/dL (74-106); POTASSIUM 4.6 mmol/L (3.5-5.1); SODIUM SERUM 142 mmol/L (136-145); UREA NITROGEN, BLOOD 35 mg/dL (8-21)
[2023-11-19 23:25] LABS: BACTERIA,URINE FEW /HPF (None Seen); WBC,URINE 0-3 /HPF (0-3)
[2023-11-19 23:27] LABS: MUCUS,URINE None Seen /LPF (None Seen)
[2023-11-20] VITALS (7 sets, daily range): BP systolic 103–183; PULSE 65–85; RESP 14–18; TEMP 96.8–98.8; O2SAT 96–99
[2023-11-20] MEDS: ACETAMINOPHEN 500 MG TABLET PO PRN (02:46)
[2023-11-20] MEDS: INSULIN REGULAR, HUMAN 100 UNITS/ML, 3 ML VIAL (humuLIN R) SUBCUT PRN (06:13)
[2023-11-20] MEDS: GABAPENTIN 300 MG CAPSULE PO SCH (08:40)
[2023-11-20] MEDS: cloNIDine HCL 0.1 MG TABLET PO PRN (08:40)
[2023-11-20] MEDS ORDERED: MUPIROCIN 2% TOPICAL OINTMENT 22 GM NS PRN (08:45)
[2023-11-20] MEDS ORDERED: LORazepam 2 MG/ML VIAL IVP PRN (08:45)
[2023-11-20] MEDS ORDERED: DOCUSATE SODIUM 100 MG CAPSULE PO PRN (08:45)
[2023-11-20] MEDS ORDERED: ONDANSETRON HCL 4 MG/2 ML VIAL IVP PRN (08:45)
[2023-11-20] MEDS ORDERED: POTASSIUM CHLORIDE 20 MEQ TABLET.ER PO PRN (08:45)
[2023-11-20] MEDS ORDERED: ZOLPIDEM TARTRATE 5 MG TABLET PO PRN (08:45)
[2023-11-20] MEDS ORDERED: hydrALAZINE HCL 25 MG TABLET PO SCH (09:00)
[2023-11-20] MEDS ORDERED: METOPROLOL TARTRATE 25 MG TABLET PO SCH (09:00)
[2023-11-20] MEDS ORDERED: hydrALAZINE HCL 20 MG/ML VIAL IVP PRN (10:30)
[2023-11-20] MEDS: ASPIRIN 81 MG TABLET(ECOTRIN) PO SCH (11:01)
[2023-11-20] MEDS: FUROSEMIDE 40 MG/4 ML VIAL IVP ONE (11:02)
[2023-11-20] MEDS: HEPARIN SODIUM,PORCINE 5,000 UNITS/ML VIAL SUBCUT SCH (11:03)
[2023-11-20] MEDS: LOSARTAN POTASSIUM 25 MG TABLET PO ONE (12:02)
[2023-11-20] MEDS: CARVEDILOL 12.5 MG TABLET (COREG) PO ONE (12:02)
[2023-11-20] MEDS: ACETAMINOPHEN 325 MG TABLET PO PRN (12:03)
[2023-11-20] MEDS: INSULIN NPH/REGULAR 70-30, 100 UNITS/ML, 3 ML VIAL SUBCUT SCH (17:09)
[2023-11-20] MEDS: ATORVASTATIN 20 MG TABLET PO SCH (21:50)
[2023-11-20] MEDS: CARVEDILOL 12.5 MG TABLET (COREG) PO SCH (21:51)
[2023-11-20] MEDS: LOSARTAN POTASSIUM 25 MG TABLET PO SCH (21:52)
[2023-11-21] VITALS: BP_SYST 149; PULSE 70; RESP 16; TEMP 97.9; O2SAT 95
[2023-11-21 04:38] LABS: BASOPHILS % (AUTO) 0.8 % (0.0-2.0); EOSINOPHILS # (AUTO) 0.1 K/uL (0.0-0.4); EOSINOPHILS % (AUTO) 1.3 % (0.0-4.0); HEMATOCRIT 26.8 % (36-48); HEMOGLOBIN 8.9 g/dL (12.0-16.0); LYMPHOCYTES # (AUTO) 2.7 K/uL (1.0-5.5); LYMPHOCYTES % (AUTO) 41.4 % (20.5-51.5); MEAN CORPUSCULAR HEMOGLOBIN 28 pg (27-31); MEAN CORPUSCULAR HGB CONC 33 % (32-36); MEAN CORPUSCULAR VOLUME 83 fL (79.0-98.0); MONOCYTES # (AUTO) 0.4 K/uL (0.0-1.0); MONOCYTES % (AUTO) 6.4 % (1.7-9.3); NEUTROPHILS # (AUTO) 3.2 K/uL (1.8-7.7); NEUTROPHILS % (AUTO) 50.1 % (40.0-70.0); PLATELET COUNT (AUTO) 194 K/uL (130-430); RED BLOOD CELL COUNT(AUTO) 3.23 MIL/uL (4.2-6.2); RED CELL DISTRIBUTION WIDTH 14.1 % (9.0-15.0); WHITE BLOOD COUNT (AUTO) 6.4 K/uL (4.8-10.8)
[2023-11-21 05:13] LABS: ANION GAP 6 (5-15); CALCIUM 8.1 mg/dL (8.4-11.0); CARBON DIOXIDE 32 mmol/L (23-29); CHLORIDE 104 mmol/L (98-107); CREATININE 2.42 mg/dL (0.55-1.30); GLUCOSE 249 mg/dL (74-106); POTASSIUM 4.2 mmol/L (3.5-5.1); SODIUM SERUM 142 mmol/L (136-145); UREA NITROGEN, BLOOD 40 mg/dL (8-21)
[2023-11-21] MEDS: MAGNESIUM SULFATE 50 ML IV PRN (10:59)
[2023-11-21 11:24] VITALS: BP_SYST 147; PULSE 87; RESP 16; TEMP 97.7; O2SAT 96
[2023-11-21] MEDS ORDERED: hydrALAZINE HCL 25 MG TABLET PO PRN (11:30)
[2023-11-21] MEDS: NACL 0.9% 1,000 ML IV SCH (12:42)
[2023-11-21 13:47] LABS: BILIRUBIN,URINE NEGATIVE (NEGATIVE); BLOOD, URINE NEGATIVE (NEGATIVE); CLARITY/URINE CLEAR (CLEAR); COLOR,URINE YELLOW (YELLOW); GLUCOSE,URINE 3+ (NEGATIVE); KETONES,URINE NEGATIVE (NEGATIVE); LEUKOCYTE ESTERASE ,URINE NEGATIVE (NEGATIVE); NITRITE, URINE NEGATIVE (NEGATIVE); PROTEIN URINE 2+ (NEGATIVE); UROBILINOGEN,URINE 0.2 (0.2-1.0)
[2023-11-21 16:36] VITALS: BP_SYST 131; PULSE 66; RESP 16; TEMP 96.7; O2SAT 97
[2023-11-21 19:00] VITALS: O2SAT 95
[2023-11-21 20:02] LABS: URINE SODIUM, RANDOM 95 mmol/L (40-220)
[2023-11-22 01:17] VITALS: BP_SYST 133; PULSE 79; RESP 18; TEMP 98.6; O2SAT 93
[2023-11-22 04:00] VITALS: BP_SYST 149; PULSE 74; RESP 16; TEMP 97.7; O2SAT 95
[2023-11-22 04:38] LABS: BASOPHILS # (AUTO) 0.1 K/uL (0.0-0.2); BASOPHILS % (AUTO) 0.8 % (0.0-2.0); EOSINOPHILS # (AUTO) 0.1 K/uL (0.0-0.4); EOSINOPHILS % (AUTO) 1.3 % (0.0-4.0); HEMATOCRIT 27.8 % (36-48); LYMPHOCYTES # (AUTO) 2.1 K/uL (1.0-5.5); MEAN CORPUSCULAR HEMOGLOBIN 27 pg (27-31); MEAN CORPUSCULAR HGB CONC 32 % (32-36); MEAN CORPUSCULAR VOLUME 84 fL (79.0-98.0); MONOCYTES # (AUTO) 0.4 K/uL (0.0-1.0); MONOCYTES % (AUTO) 5.4 % (1.7-9.3); NEUTROPHILS # (AUTO) 4.3 K/uL (1.8-7.7); NEUTROPHILS % (AUTO) 61.5 % (40.0-70.0); PLATELET COUNT (AUTO) 208 K/uL (130-430); RED BLOOD CELL COUNT(AUTO) 3.32 MIL/uL (4.2-6.2); WHITE BLOOD COUNT (AUTO) 6.9 K/uL (4.8-10.8)
[2023-11-22 04:49] LABS: PROTHROMBIN TIME 9.9 SECS (9.5-12.5)
[2023-11-22 04:57] LABS: ANION GAP 4 (5-15); CALCIUM 8.3 mg/dL (8.4-11.0); CARBON DIOXIDE 29 mmol/L (23-29); CHLORIDE 105 mmol/L (98-107); CREATININE 2.21 mg/dL (0.55-1.30); GLUCOSE 303 mg/dL (74-106); POTASSIUM 4.5 mmol/L (3.5-5.1); SODIUM SERUM 138 mmol/L (136-145); UREA NITROGEN, BLOOD 47 mg/dL (8-21)
[2023-11-22] MEDS ORDERED: CARV12.548 PO (09:12)
[2023-11-22] MEDS ORDERED: LOSA-412 PO (09:12)
[2023-11-22 10:00] VITALS: O2SAT 97
[2023-11-22 11:00] VITALS: BP_SYST 118; PULSE 75; RESP 17; TEMP 97.7; O2SAT 94
[2023-11-22 15:36] VITALS: BP_SYST 118; PULSE 75; RESP 17; TEMP 97.7; O2SAT 94
[2023-11-22 16:59] VITALS: BP_SYST 142; PULSE 76; RESP 17; TEMP 98.1; O2SAT 98
== END 2023-11-22 19:45 | disposition home or self-care (01) | DRG 280 ==
LOC: SED 21:46 → STU 11-20 01:41 → OBSVTOIN 11-20 01:41 → STU 11-20 02:45 → SMU 11-21 11:36
PROVIDERS: ADMIT General Practice; ATTEND General Practice
DX: I16.1 Hypertensive emergency (principal); N17.0 Acute kidney failure with tubular necrosis; I21.A1 Myocardial infarction type 2; E11.22 Type 2 diabetes mellitus with diabetic chronic kidney disease; E11.65 Type 2 diabetes mellitus with hyperglycemia; E78.5 Hyperlipidemia, unspecified; I12.9 Hypertensive chronic kidney disease with stage 1 through stage 4 chronic kidney disease, or unspecified chronic kidney disease; Z66 Do not resuscitate; N18.30 Chronic kidney disease, stage 3 unspecified; Z94.7 Corneal transplant status; Z79.899 Other long term (current) drug therapy
CPT/HCPCS: 36415; 70450-TC; 71045; 76770; 80048; 81000; 81001; 81003; 81015; 82570; 82948; 83037; 83735; 83880; 84302; 84484; 85025; 85610; 85730; 87081; 93005; 93970; 96374; 99291; G0378; J0360; J1644; J1815; J1940; J3475